=== PATIENT | female | born 1985 | race Caucasian/White ===

== ENCOUNTER 2020-09-03 11:50 | Outpatient (CLI) | payer BC, SELFPAY | END 2020-09-03 11:51 | disposition home or self-care (01) | LOC: ANHCOVIDVC 11:50 | DX: Z23 Encounter for immunization (principal) | CPT/HCPCS: 0001A; 91300 ==

== ENCOUNTER 2020-09-24 11:02 | Outpatient (CLI) | payer BC, SELFPAY | END 2020-09-24 11:03 | disposition home or self-care (01) | LOC: ANHCOVIDVC 11:02 | DX: Z23 Encounter for immunization (principal) | CPT/HCPCS: 0002A; 91300 ==

== ENCOUNTER 2022-01-24 15:06 | Emergency (ER) | payer BC, SELFPAY ==
--- NOTE | ~2022-01-24 | XR_ITS ---
EXAM: XR foot LT min 3V DATE: 01/24/2022 15:34 HISTORY: pain 4th toe,redness from going into 4th metatarsal . COMPARISON: None available. FINDINGS: Normal mineralization. No fracture or dislocation. No lytic or blastic lesion. Hallux valg us. Plantar enthesopathy. No erosion or periosteal change. Soft tissues within normal limits. IMPRESSION: No acute osseous finding in the left foot. Reviewed, dictated and finalized at location K.
[2022-01-24 15:14] VITALS: BP 120/72; PULSE 65; RESP 16; TEMP 36.9; O2SAT 100
--- NOTE | 2022-01-24 15:34 | ED.EXTPRO ---
HPI - Extremity Problem General Chief complaint: Extremity Problem,Nontraumatic Stated complaint: Lt Foot Pain Time Seen by Provider: 01/24/22 15:34 History of Present Illness HPI Narrative: Lisa Zamora is a 36 yo female w no PMH who comes to express care with pain in her fourth toe of her left foot; denies injury, states that she started having pain on Wednesday had a blister on from wearing some kind of shoe few days ago and now the toe is very red and painful. Had pedicure on 01/15/22 Related Data Home Medications Medication Instructions Recorded Confirmed levonorgestrel 20 mcg/24 hours (7 See Rx Instructions .Route .COMPLEX 01/24/22 01/24/22 yrs) 52 mg intrauterine device (Mirena) Allergies Allergy/AdvReac Type Severity Reaction Status Date / Time codeine AdvReac Mild ITCH Verified 01/24/22 15:18 Penicillins AdvReac Mild HIVES Verified 01/24/22 15:18 Review of Systems Review of Systems: CONSTITUTIONAL: Denies fever, chills, sweats. EYES: Denies visual changes, redness, discharge. ENT: Denies rhinorrhea, congestion, sore throat, otalgia. CARDIOVASCULAR: Denies chest pain, palpitations, edema. RESPIRATORY: Denies dyspnea, wheezing, cough GASTROINTESTINAL: Denies abdominal pain, nausea, vomiting, diarrhea. GENITOURINARY: Denies dysuria, hematuria, abnormal discharge SKIN: Denies rash or itching. NEUROLOGIC: Denies numbness, or focal weakness. PSYCHIATRIC: Denies anxiety or depression. Left fourth toe swelling pain or redness PMFSH Social History Social History (Updated 01/24/22 @ 15:50 by Olivia Mota CNP) Smoking status: Current some day smoker Tobacco type: e-cigarettes/vaping Alcohol intake: current Exam Narrative: GENERAL: This is a well-nourished, well-developed patient, in mild distress. HEAD: normocephalic, atraumatic. EYES: Sclera clear/white. Vision is grossly intact. EARS: External ears normal, Hearing grossly intact. NOSE: External nose normal without nasal discharge, nares without redness, no rhinorrhea. THROAT: Mucous membranes moist, NECK: Neck supple, non-tender CARDIOVASCULAR: Regular rate and rhythm without murmurs, gallops, or rubs. RESPIRATORY: Clear to auscultation. Breath sounds equal bilaterally. No wheezes, rales, or rhonchi. GASTROINTESTINAL: Not done SKIN: warm, intact with L 4th toe, redness and tender, 2+ pedal pulse NEURO: awake, alert, and oriented to person, place and time. There were no obvious focal neurologic abnormalities. Steady gait EXTREMITIES: Normal range of motion. BACK: Nontender without deformity Course Course Emergency Course: Fourth L toe pain and swelling -tender with pressure Xray of L foot-no acute osseous finding of the left foot, no lytic or blastic lesion Examined foot and open blister on side of foot with a an 18-gauge needle after cleaning the foot, foot wrapped in person put in a postop shoe referred to podiatry Start cephalexin 500 3 times daily Level of Care: Express Care Visit Vital Signs Vital signs: Vital Signs Temperature 98.4 F 01/24/22 15:14 Pulse Rate 65 01/24/22 15:14 Respiratory Rate 16 01/24/22 15:14 Blood Pressure 120/72 01/24/22 15:14 Pulse Oximetry 100 01/24/22 15:14 Oxygen Delivery Room Air 01/24/22 15:14 Temperature 98.4 F 01/24/22 15:14 Pulse Rate 65 01/24/22 15:14 Respiratory Rate 16 01/24/22 15:14 Blood Pressure 120/72 01/24/22 15:14 Pulse Oximetry 100 01/24/22 15:14 Oxygen Delivery Room Air 01/24/22 15:14 Procedures Abscess I/D lower extremity: Date of Incision: 01/24/22 Time of Incision: 16:35 Technique: needle aspiration Amount of fluid expressed (mL): 1 Irrigation: Yes Packing used?: none I&D Results: Pus and Blood Complications: pain MDM - Extremity (Nontraumatic) Differential Diagnosis Differential diagnosis: Likely gout, cellulitis and other (abscess vs paronychia) Critical Care Time Speedy
== END 2022-01-24 16:44 | disposition home or self-care (01) ==
PROVIDERS: Emergency Provider Nurse Practitioner
DX: L03.032 Cellulitis of left toe (principal); F17.290 Nicotine dependence, other tobacco product, uncomplicated
CPT/HCPCS: 10021; 73630; 99213; G0463